=== PATIENT | male | born 1950 | race Caucasian/White ===

== ENCOUNTER 2017-08-27 08:20 | Inpatient (IN) ==
[2017-08-27] MEDS ORDERED: ALBUTEROL 2.5 MG/3 ML NEB RESP TX STA (08:39)
[2017-08-27 09:12] LABS: Basophils # 0.1 10*3/uL (0.0-0.2); Basophils % 0.7 % (0.0-0.8); Eosinophils # 0.2 10*3/uL (0.0-0.87); Eosinophils % 1.9 % (0.00-10.9); Hematocrit 35.9 VOL% (42.0-52.0); Hemoglobin 11.9 GM/DL (14.0-18.0); Immature Granulocytes % 0.9 %; Immature Granulocytes Absolute 0.08 #; Lymphocytes # 1.1 10*3/uL (1.4-4.0); Lymphocytes % 12.1 % (21.2-54.2); Mean Corpuscular HGB Conc 33.1 GM/DL (32-36); Mean Corpuscular Hemoglobin 29 PG (27-34); Mean Corpuscular Volume 88.2 FL (87-102); Mean Platelet Volume 9.8 FL (9.6-12.0); Monocytes # 0.6 10*3/uL (0.11-0.8); Monocytes % 7.1 % (1.7-12.7); Neutrophils # 6.9 10*3/uL (1.4-7.4); Neutrophils % 77.3 % (38.7-73.9); Platelet Count 258 T/CUMM (130-400); Red Blood Count 4.07 MC/CUMM (3.8-5.5); Red Cell Distribution Width 13.3 % (9.3-17.3)
[2017-08-27] MEDS ORDERED: ALBUTEROL 2.5 MG/3 ML NEB RESP TX ONE (09:29)
[2017-08-27 09:54] LABS: Alanine Aminotransferase 15 U/L (16-61); Albumin 3.3 G/DL (3.4-5.0); Alkaline Phosphatase 70 U/L (45-117); Aspartate Amino Transferase 15 U/L (0-37); Bilirubin,Total < 0.39 MG/DL (0.2-1.0); Blood Urea Nitrogen 31 MG/DL (7-18); Calcium 8.7 MG/DL (8.5-10.1); Glucose 203 MG/DL (74-106); Osmolality,Calculated 282.1 MOS/KG (273-304); Potassium 4.9 MMOL/L (3.5-5.1); Sodium 135 MMOL/L (136-145); Total Protein 6.6 G/DL (6.4-8.3); Troponin I Only < 0.015 NG/ML (0.00-0.045)
[2017-08-27] MEDS ORDERED: methylPREDNISolone SOD SUC 125 MG/2 ML VIAL IV STA (10:21)
[2017-08-27] MEDS ORDERED: LEVOFLOXACIN INJ 500 MG in PREMIX 1 EACH IV STA (10:21)
[2017-08-27] MEDS ORDERED: methylPREDNISolone SOD SUC 125 MG/2 ML VIAL ONE (10:28)
[2017-08-27] MEDS ORDERED: LEVOFLOXACIN INJ 100 ML IV ONE (10:28)
[2017-08-27] MEDS ORDERED: GLUCAGON 1 MG VIAL IM PRN (14:00)
[2017-08-27] MEDS ORDERED: DEXTROSE 50% 25 GM/50 ML VIAL IV PRN (14:00)
[2017-08-27] MEDS ORDERED: ACETAMINOPHEN 325 MG TABLET PO PRN (14:00)
[2017-08-27] MEDS: NICOTINE 21 MG/24 HR PATCH TRANSDERM SCH (14:14)
[2017-08-27 14:24] LABS: Risk Ratio 2.64; VLDL CHOLESTEROL 18.2 MG/DL
[2017-08-27] MEDS: LEVOFLOXACIN INJ 500 MG in PREMIX 1 EACH IV SCH (14:37)
[2017-08-27] MEDS: methylPREDNISolone SOD SUC 40 MG/1 ML VIAL IV SCH ×2 (14:55→21:41)
[2017-08-27] MEDS: INSULIN LISPRO 100 UNIT/ML SUBCUT SCH ×3 (14:57→21:40)
[2017-08-27] MEDS: ALBUTEROL/IPRATROPIUM 3 ML NEB RESP TX SCH ×3 (15:00→23:35)
[2017-08-27 16:05] LABS: Apearance,Urine CLEAR (Clear); Bilirubin,Urine Negative (Negative); Blood, Urine Small mg/dL (Negative); Glucose,Urine (UA) >=500 mg/dL (Negative); Ketones,Urine Negative (Negative); Nitrite,Urine Negative (Negative); Protein,Urine Negative; RBC,Urine 2 /HPF (0-4); Squamous Epithelial Cell,Urine Occasional /HPF (0-10); Urine Color Yellow (Yellow); Urine Specific Gravity 1.013 (1.001-1.035); Urine Urobilinogen < 2.0 EU/DL (0.2-1.0); WBC,Urine <1 /HPF (0-6)
[2017-08-27] MEDS: BENZONATATE 100 MG CAPSULE PO SCH (21:38)
[2017-08-27] MEDS: MONTELUKAST 10 MG TABLET PO SCH (21:38)
[2017-08-27] MEDS: CLINDAMYCIN INJ 300 MG in PREMIX 1 EACH IV SCH (21:44)
[2017-08-28] MEDS: ALBUTEROL/IPRATROPIUM 3 ML NEB RESP TX SCH ×5 (03:15→19:58)
[2017-08-28] MEDS: CLINDAMYCIN INJ 300 MG in PREMIX 1 EACH IV SCH ×4 (04:19→22:07)
[2017-08-28 04:58] LABS: Basophils % 0.1 % (0.0-0.8); Hemoglobin 11.3 GM/DL (14.0-18.0); Immature Granulocytes % 1.1 %; Immature Granulocytes Absolute 0.12 #; Lymphocytes # 0.7 10*3/uL (1.4-4.0); Lymphocytes % 6.1 % (21.2-54.2); Mean Corpuscular HGB Conc 33.2 GM/DL (32-36); Mean Corpuscular Hemoglobin 29 PG (27-34); Mean Corpuscular Volume 87.4 FL (87-102); Monocytes # 0.3 10*3/uL (0.11-0.8); Monocytes % 2.8 % (1.7-12.7); Neutrophils # 9.6 10*3/uL (1.4-7.4); Neutrophils % 89.9 % (38.7-73.9); Platelet Count 255 T/CUMM (130-400); Red Blood Count 3.89 MC/CUMM (3.8-5.5); Red Cell Distribution Width 13.1 % (9.3-17.3); White Blood Count 10.7 T/CUMM (4-12)
[2017-08-28 05:29] LABS: Calcium 8.6 MG/DL (8.5-10.1); Magnesium 1.9 MG/DL (1.8-2.4); Osmolality,Calculated 288.2 MOS/KG (273-304); Potassium 4.7 MMOL/L (3.5-5.1)
[2017-08-28] MEDS: methylPREDNISolone SOD SUC 40 MG/1 ML VIAL IV SCH ×3 (06:13→22:06)
[2017-08-28] MEDS: INSULIN LISPRO 100 UNIT/ML SUBCUT SCH ×4 (08:20→22:05)
[2017-08-28] MEDS: NICOTINE 21 MG/24 HR PATCH TRANSDERM SCH (08:20)
[2017-08-28] MEDS: BENZONATATE 100 MG CAPSULE PO SCH ×3 (08:20→22:04)
[2017-08-28] MEDS: MONTELUKAST 10 MG TABLET PO SCH ×2 (08:21→22:05)
[2017-08-28] MEDS: PANTOPRAZOLE 40 MG TABLET PO SCH (08:21)
[2017-08-28] MEDS: FLUCONAZOLE 200 MG TABLET PO SCH (10:34)
[2017-08-28] MEDS: NYSTATIN 500,000 UNIT/5 ML UDCUP SWISH/SWAL SCH ×3 (12:26→22:04)
[2017-08-28] MEDS: BUPRENORPHINE 8 MG SL SCH ×2 (15:10→22:52)
[2017-08-28] MEDS: LEVOFLOXACIN INJ 500 MG in PREMIX 1 EACH IV SCH (15:11)
[2017-08-28] MEDS: cloNIDine 0.1 MG TABLET PO SCH (22:04)
[2017-08-28] MEDS: LIDOCAINE 2% 20 ML VIAL RESP TX SCH (22:40)
[2017-08-29] MEDS: ALBUTEROL/IPRATROPIUM 3 ML NEB RESP TX SCH ×7 (00:04→23:43)
[2017-08-29] MEDS: CLINDAMYCIN INJ 300 MG in PREMIX 1 EACH IV SCH ×4 (04:18→21:07)
[2017-08-29] MEDS: LIDOCAINE 2% 20 ML VIAL RESP TX SCH ×5 (07:29→19:32)
[2017-08-29] MEDS: MONTELUKAST 10 MG TABLET PO SCH ×2 (08:04→21:00)
[2017-08-29] MEDS: BUPRENORPHINE 8 MG SL SCH ×3 (08:04→20:58)
[2017-08-29] MEDS: PANTOPRAZOLE 40 MG TABLET PO SCH (08:04)
[2017-08-29] MEDS: cloNIDine 0.1 MG TABLET PO SCH ×2 (08:04→20:59)
[2017-08-29] MEDS: FUROSEMIDE 40 MG TABLET PO SCH ×2 (08:04→16:18)
[2017-08-29] MEDS: NICOTINE 21 MG/24 HR PATCH TRANSDERM SCH (08:04)
[2017-08-29] MEDS: methylPREDNISolone SOD SUC 40 MG/1 ML VIAL IV SCH ×3 (08:04→23:00)
[2017-08-29] MEDS: FLUCONAZOLE 200 MG TABLET PO SCH (08:05)
[2017-08-29] MEDS: METOPROLOL SUCCINATE XL 50 MG TABLET PO SCH (08:05)
[2017-08-29] MEDS: BENZONATATE 100 MG CAPSULE PO SCH ×3 (08:05→21:01)
[2017-08-29] MEDS: NYSTATIN 500,000 UNIT/5 ML UDCUP SWISH/SWAL SCH ×4 (08:05→21:01)
[2017-08-29] MEDS: INSULIN LISPRO 100 UNIT/ML SUBCUT SCH ×4 (08:05→21:05)
[2017-08-29] MEDS: ASPIRIN EC 325 MG TABLET PO SCH (08:05)
[2017-08-29] MEDS: LEVOFLOXACIN INJ 500 MG in PREMIX 1 EACH IV SCH (14:34)
[2017-08-29] MEDS: MELATONIN 3 MG TABLET PO PRN (20:59)
[2017-08-30] MEDS: ALBUTEROL/IPRATROPIUM 3 ML NEB RESP TX SCH ×5 (03:08→18:52)
[2017-08-30] MEDS: CLINDAMYCIN INJ 300 MG in PREMIX 1 EACH IV SCH ×4 (04:37→22:43)
[2017-08-30] MEDS: BUPRENORPHINE 8 MG SL SCH ×3 (08:03→20:38)
[2017-08-30] MEDS: FUROSEMIDE 40 MG TABLET PO SCH ×2 (08:03→16:31)
[2017-08-30] MEDS: METOPROLOL SUCCINATE XL 50 MG TABLET PO SCH (08:03)
[2017-08-30] MEDS: cloNIDine 0.1 MG TABLET PO SCH ×2 (08:03→20:33)
[2017-08-30] MEDS: PANTOPRAZOLE 40 MG TABLET PO SCH (08:03)
[2017-08-30] MEDS: NYSTATIN 500,000 UNIT/5 ML UDCUP SWISH/SWAL SCH ×4 (08:03→20:32)
[2017-08-30] MEDS: BENZONATATE 100 MG CAPSULE PO SCH ×3 (08:03→20:32)
[2017-08-30] MEDS: ASPIRIN EC 325 MG TABLET PO SCH (08:03)
[2017-08-30] MEDS: MONTELUKAST 10 MG TABLET PO SCH ×2 (08:03→20:33)
[2017-08-30] MEDS: FLUCONAZOLE 200 MG TABLET PO SCH (08:03)
[2017-08-30] MEDS: NICOTINE 21 MG/24 HR PATCH TRANSDERM SCH (08:03)
[2017-08-30] MEDS: INSULIN LISPRO 100 UNIT/ML SUBCUT SCH ×4 (08:04→20:36)
[2017-08-30] MEDS: methylPREDNISolone SOD SUC 40 MG/1 ML VIAL IV SCH ×2 (10:34→22:41)
[2017-08-30] MEDS: LEVOFLOXACIN INJ 500 MG in PREMIX 1 EACH IV SCH (14:20)
[2017-08-30] MEDS: MELATONIN 3 MG TABLET PO PRN (20:33)
[2017-08-31] MEDS: ALBUTEROL/IPRATROPIUM 3 ML NEB RESP TX SCH ×4 (00:15→11:09)
[2017-08-31] MEDS: CLINDAMYCIN INJ 300 MG in PREMIX 1 EACH IV SCH ×2 (04:07→10:21)
[2017-08-31] MEDS: cloNIDine 0.1 MG TABLET PO SCH (08:39)
[2017-08-31] MEDS: NYSTATIN 500,000 UNIT/5 ML UDCUP SWISH/SWAL SCH ×2 (08:39→11:59)
[2017-08-31] MEDS: FUROSEMIDE 40 MG TABLET PO SCH (08:39)
[2017-08-31] MEDS: BENZONATATE 100 MG CAPSULE PO SCH (08:39)
[2017-08-31] MEDS: METOPROLOL SUCCINATE XL 50 MG TABLET PO SCH (08:39)
[2017-08-31] MEDS: MONTELUKAST 10 MG TABLET PO SCH (08:39)
[2017-08-31] MEDS: ASPIRIN EC 325 MG TABLET PO SCH (08:39)
[2017-08-31] MEDS: FLUCONAZOLE 200 MG TABLET PO SCH (08:39)
[2017-08-31] MEDS: PANTOPRAZOLE 40 MG TABLET PO SCH (08:39)
[2017-08-31] MEDS: INSULIN LISPRO 100 UNIT/ML SUBCUT SCH ×2 (08:40→12:00)
[2017-08-31] MEDS: NICOTINE 21 MG/24 HR PATCH TRANSDERM SCH (08:40)
[2017-08-31] MEDS: BUPRENORPHINE 8 MG SL SCH (08:47)
[2017-08-31] MEDS: methylPREDNISolone SOD SUC 40 MG/1 ML VIAL IV SCH (10:19)
[2017-08-31 12:07] VITALS: BP 157/69
== END 2017-08-31 12:45 | disposition home or self-care (01) | DRG 192 ==
LOC: N.ED 08:20 → SUATTDRO 10:28 → N.EDINP 10:28 → N.4E 13:55
PROVIDERS: ADMIT Internal Medicine; ATTEND Internal Medicine

== ENCOUNTER 2018-12-15 12:47 | Observation (INO) ==
[2018-12-15] MEDS ORDERED: SODIUM CHLORIDE 0.9% 500 ML IV STA (13:23)
[2018-12-15] MEDS ORDERED: ALBUTEROL/IPRATROPIUM 3 ML NEB RESP TX STA (13:23)
[2018-12-15 13:59] LABS: Basophils # 0.1 10*3/uL (0.0-0.2); Basophils % 1.3 % (0.0-0.8); Eosinophils # 0.2 10*3/uL (0.0-0.87); Eosinophils % 3.5 % (0.00-10.9); Hematocrit 23.8 VOL% (42.0-52.0); Hemoglobin 7.7 GM/DL (14.0-18.0); Immature Granulocytes % 7.3 %; Immature Granulocytes Absolute 0.39 #; Lymphocytes # 0.4 10*3/uL (1.4-4.0); Mean Corpuscular HGB Conc 32.4 GM/DL (32-36); Mean Corpuscular Hemoglobin 31 PG (27-34); Mean Corpuscular Volume 95.2 FL (87-102); Mean Platelet Volume 10.1 FL (9.6-12.0); Monocytes % 17.7 % (1.7-12.7); Neutrophils # 3.3 10*3/uL (1.4-7.4); Neutrophils % 62.2 % (38.7-73.9); Platelet Count 121 T/CUMM (130-400); Red Cell Distribution Width 18.6 % (9.3-17.3); White Blood Count 5.4 T/CUMM (4-12)
[2018-12-15] MEDS ORDERED: SODIUM CHLORIDE 0.9% 1,000 ML IV PRN ×2 (14:05→15:50)
[2018-12-15 14:26] LABS: Alanine Aminotransferase 16 U/L (16-61); Albumin 3.5 G/DL (3.4-5.0); Alkaline Phosphatase 97 U/L (45-117); Aspartate Amino Transferase 15 U/L (0-37); Bilirubin,Total < 0.39 MG/DL (0.2-1.0); Blood Urea Nitrogen 26 MG/DL (7-18); Calcium 8.5 MG/DL (8.5-10.1); Glucose 138 MG/DL (74-106); Osmolality,Calculated 285.4 MOS/KG (273-304); Potassium 3.9 MMOL/L (3.5-5.1); Sodium 140 MMOL/L (136-145); Total Protein 6.9 G/DL (6.4-8.3)
[2018-12-15 14:46] LABS: Band Neutrophils 5 % (0-10); Eosinophils 1 % (0-10); Lymphocytes 11 % (20-55); Metamyelocytes 1 %; Myelocytes 1 %; Platelet Estimate Adequate; Segmented Neutrophils 61 % (50-85); Total Cells Counted 100
[2018-12-15 14:47] LABS: Hypochromasia Slight; Macrocytosis Slight; Ovalocytes Few
[2018-12-15] MEDS ORDERED: GLUCAGON 1 MG VIAL IM PRN (15:21)
[2018-12-15] MEDS ORDERED: ONDANSETRON 4 MG/2 ML VIAL IV PRN (15:21)
[2018-12-15] MEDS ORDERED: DEXTROSE 50% 25 GM/50 ML SYRINGE IV PRN (15:21)
[2018-12-15] MEDS ORDERED: ACETAMINOPHEN 325 MG TABLET PO PRN (15:21)
[2018-12-15] MEDS ORDERED: HYDROmorphone 2 MG/1 ML VIAL IV STA (15:49)
[2018-12-15] MEDS ORDERED: MAGNESIUM SULF RIDER 2 GM in PREMIX 1 EACH IV ONE (17:07)
[2018-12-15] MEDS: FUROSEMIDE 40 MG TABLET PO SCH (17:27)
[2018-12-15] MEDS: HYDROmorphone 2 MG/1 ML VIAL IV PRN ×2 (17:28→21:40)
[2018-12-15] MEDS: INSULIN REGULAR 100 UNIT/ML SUBCUT SCH ×2 (17:56→21:30)
[2018-12-15] MEDS: NYSTATIN 500,000 UNIT/5 ML UDCUP SWISH/SWAL SCH ×2 (18:34→21:33)
[2018-12-15] MEDS ORDERED: NICOTINE 21 MG/24 HR PATCH TRANSDERM SCH (18:36)
[2018-12-15] MEDS: ALBUTEROL/IPRATROPIUM 3 ML NEB RESP TX SCH (19:30)
[2018-12-15] MEDS ORDERED: SIMVASTATIN 40 MG TABLET PO SCH (21:00)
[2018-12-15] MEDS: BUPRENORPHINE SL TAB 2 MG TABLET SL SCH (21:29)
[2018-12-15] MEDS: POTASSIUM CHLORIDE 20 MEQ TABLET PO SCH (21:29)
[2018-12-15] MEDS: PANTOPRAZOLE 40 MG TABLET PO SCH (21:30)
[2018-12-15] MEDS: BUDESONIDE/FORMOTEROL 160-4.5 INHALER 6 GM INH SCH (21:41)
[2018-12-16] MEDS: ALBUTEROL/IPRATROPIUM 3 ML NEB RESP TX SCH ×2 (00:30→07:06)
[2018-12-16] MEDS: HYDROmorphone 2 MG/1 ML VIAL IV PRN ×2 (03:03→08:36)
[2018-12-16 07:03] LABS: Basophils % 0.4 % (0.0-0.8); Eosinophils # 0.2 10*3/uL (0.0-0.87); Eosinophils % 2.3 % (0.00-10.9); Hematocrit 31.1 VOL% (42.0-52.0); Hemoglobin 10.3 GM/DL (14.0-18.0); Immature Granulocytes % 10.6 %; Immature Granulocytes Absolute 1.02 #; Lymphocytes # 0.5 10*3/uL (1.4-4.0); Lymphocytes % 5.1 % (21.2-54.2); Mean Corpuscular HGB Conc 33.1 GM/DL (32-36); Mean Corpuscular Hemoglobin 31 PG (27-34); Mean Corpuscular Volume 93.1 FL (87-102); Mean Platelet Volume 10.6 FL (9.6-12.0); Monocytes # 1.6 10*3/uL (0.11-0.8); Monocytes % 16.6 % (1.7-12.7); NRBC # 0.03 10*3/uL; Neutrophils # 6.2 10*3/uL (1.4-7.4); Platelet Count 106 T/CUMM (130-400); Red Blood Count 3.34 MC/CUMM (3.8-5.5); Red Cell Distribution Width 17.2 % (9.3-17.3); White Blood Count 9.6 T/CUMM (4-12)
[2018-12-16 07:26] LABS: Albumin 3.4 G/DL (3.4-5.0); Band Neutrophils 6 % (0-10); Bilirubin,Total 1.5 MG/DL (0.2-1.0); Calcium 8.8 MG/DL (8.5-10.1); Eosinophils 2 % (0-10); Hypochromasia 1+; Lymphocytes 5 % (20-55); Nucleated Red Blood Cells 1 (0-5); Osmolality,Calculated 281.5 MOS/KG (273-304); Ovalocytes Slight; Potassium 3.8 MMOL/L (3.5-5.1); Segmented Neutrophils 71 % (50-85); Total Cells Counted 100; Total Protein 7.3 G/DL (6.4-8.3)
[2018-12-16 07:27] LABS: Anisocytosis 1+; Microcytosis 1+
[2018-12-16] MEDS: POTASSIUM CHLORIDE 20 MEQ TABLET PO SCH (08:30)
[2018-12-16] MEDS: FUROSEMIDE 40 MG TABLET PO SCH (08:30)
[2018-12-16] MEDS: BUPRENORPHINE SL TAB 2 MG TABLET SL SCH (08:31)
[2018-12-16] MEDS: BUDESONIDE/FORMOTEROL 160-4.5 INHALER 6 GM INH SCH (08:40)
[2018-12-16] MEDS ORDERED: cloNIDine 0.1 MG TABLET PO SCH (09:00)
[2018-12-16] MEDS ORDERED: NICOTINE 21 MG/24 HR PATCH TRANSDERM SCH (09:00)
[2018-12-16] MEDS ORDERED: PANTOPRAZOLE 40 MG TABLET PO SCH (09:00)
[2018-12-16] MEDS ORDERED: ASPIRIN EC 325 MG TABLET PO SCH (09:00)
[2018-12-16] MEDS: INSULIN REGULAR 100 UNIT/ML SUBCUT SCH ×2 (09:28→13:26)
[2018-12-16] MEDS: NYSTATIN 500,000 UNIT/5 ML UDCUP SWISH/SWAL SCH ×2 (10:50→13:26)
[2018-12-16] MEDS: PANTOPRAZOLE 40 MG TABLET PO SCH (10:50)
[2018-12-16 13:07] VITALS: BP 144/76
== END 2018-12-16 13:21 | disposition home or self-care (01) ==
LOC: N.EDINP 12:47 → N.ED 12:47 → N.4E 16:57
PROVIDERS: ADMIT Hospitalist; ATTEND Hospitalist

== ENCOUNTER 2019-01-10 15:11 | Inpatient (IN) ==
[2019-01-10] MEDS ORDERED: ALBUTEROL/IPRATROPIUM 3 ML NEB RESP TX STA (17:23)
[2019-01-10] MEDS ORDERED: FUROSEMIDE 40 MG/4 ML VIAL IV STA (17:23)
[2019-01-10] MEDS ORDERED: CEFTAROLINE 600 MG in SODIUM CHLORIDE 0.9% 100 ML IV STA (17:23)
[2019-01-10 17:25] LABS: Basophils % 0.4 % (0.0-0.8); Eosinophils # 0.1 10*3/uL (0.0-0.87); Eosinophils % 1.3 % (0.00-10.9); Hematocrit 25.2 VOL% (42.0-52.0); Hemoglobin 8.2 GM/DL (14.0-18.0); Immature Granulocytes % 4.9 %; Immature Granulocytes Absolute 0.37 #; Lymphocytes # 0.5 10*3/uL (1.4-4.0); Lymphocytes % 6.8 % (21.2-54.2); Mean Corpuscular HGB Conc 32.5 GM/DL (32-36); Mean Corpuscular Hemoglobin 33 PG (27-34); Mean Corpuscular Volume 100.4 FL (87-102); Mean Platelet Volume 10.6 FL (9.6-12.0); Monocytes # 0.7 10*3/uL (0.11-0.8); Monocytes % 9.6 % (1.7-12.7); Neutrophils # 5.8 10*3/uL (1.4-7.4); Platelet Count 80 T/CUMM (130-400); Red Blood Count 2.51 MC/CUMM (3.8-5.5); White Blood Count 7.5 T/CUMM (4-12)
[2019-01-10 17:53] LABS: Alanine Aminotransferase 20 U/L (16-61); Albumin 3.5 G/DL (3.4-5.0); Alkaline Phosphatase 95 U/L (45-117); Aspartate Amino Transferase 17 U/L (0-37); Bilirubin,Total < 0.39 MG/DL (0.2-1.0); Blood Urea Nitrogen 25 MG/DL (7-18); Calcium 7.7 MG/DL (8.5-10.1); Glucose 114 MG/DL (74-106); Osmolality,Calculated 279.7 MOS/KG (273-304); Potassium 4.1 MMOL/L (3.5-5.1); Sodium 138 MMOL/L (136-145); Total Protein 6.9 G/DL (6.4-8.3)
[2019-01-10 17:56] LABS: Troponin I < 0.015 NG/ML (0.00-0.045)
[2019-01-10] MEDS ORDERED: MAGNESIUM SULF RIDER 2 GM in PREMIX 1 EACH IV STA (18:22)
[2019-01-10 18:26] LABS: Anisocytosis Slight
[2019-01-10 18:27] LABS: Hypochromasia Slight; Microcytosis 1+; Ovalocytes Slight; Platelet Estimate Decreased
[2019-01-10 18:30] LABS: Band Neutrophils 1 % (0-10); Lymphocytes 10 % (20-55); Segmented Neutrophils 80 % (50-85); Total Cells Counted 100
[2019-01-10] MEDS ORDERED: MORPHINE 4 MG/1 ML VIAL IV STA (18:44)
[2019-01-10] MEDS ORDERED: ONDANSETRON 4 MG/2 ML VIAL IV STA (18:44)
[2019-01-10] MEDS ORDERED: guaiFENesin/DM ER 600-30 MG TABLET PO PRN (19:31)
[2019-01-10] MEDS ORDERED: ACETAMINOPHEN 325 MG TABLET PO PRN (19:31)
[2019-01-10] MEDS ORDERED: DOCUSATE SODIUM 100 MG CAPSULE PO PRN (19:31)
[2019-01-10] MEDS ORDERED: ONDANSETRON 4 MG/2 ML VIAL IV PRN (19:31)
[2019-01-10] MEDS ORDERED: ALBUTEROL/IPRATROPIUM 3 ML NEB RESP TX PRN (20:06)
[2019-01-10] MEDS ORDERED: NITROGLYCERIN SL 0.4 MG TABLET SL PRN (20:16)
[2019-01-10] MEDS ORDERED: GLUCAGON 1 MG VIAL IM PRN (20:17)
[2019-01-10] MEDS ORDERED: DEXTROSE 50% 25 GM/50 ML VIAL IV PRN (20:17)
[2019-01-10] MEDS: BUDESONIDE/FORMOTEROL 160-4.5 INHALER 6 GM INH SCH (21:51)
[2019-01-10] MEDS: POTASSIUM CHLORIDE 20 MEQ TABLET PO SCH (21:52)
[2019-01-10] MEDS: cloNIDine 0.1 MG TABLET PO SCH (21:52)
[2019-01-10] MEDS: BUPRENORPHINE SL TAB 2 MG TABLET SL SCH (21:52)
[2019-01-10] MEDS: APIXABAN 2.5 MG TABLET PO SCH (21:52)
[2019-01-10] MEDS: INSULIN LISPRO 100 UNIT/ML SUBCUT SCH (21:55)
[2019-01-11 04:43] LABS: Basophils % 0.4 % (0.0-0.8); Eosinophils # 0.1 10*3/uL (0.0-0.87); Eosinophils % 1.3 % (0.00-10.9); Hematocrit 22.5 VOL% (42.0-52.0); Hemoglobin 7.2 GM/DL (14.0-18.0); Immature Granulocytes Absolute 0.32 #; Lymphocytes # 0.4 10*3/uL (1.4-4.0); Lymphocytes % 8.3 % (21.2-54.2); Mean Corpuscular Hemoglobin 32 PG (27-34); Mean Corpuscular Volume 99.6 FL (87-102); Mean Platelet Volume 10.6 FL (9.6-12.0); Monocytes # 0.7 10*3/uL (0.11-0.8); Monocytes % 12.8 % (1.7-12.7); Neutrophils # 3.8 10*3/uL (1.4-7.4); Neutrophils % 71.2 % (38.7-73.9); Platelet Count 68 T/CUMM (130-400); Red Blood Count 2.26 MC/CUMM (3.8-5.5); White Blood Count 5.3 T/CUMM (4-12)
[2019-01-11 05:14] LABS: Calcium 7.9 MG/DL (8.5-10.1); Osmolality,Calculated 289.4 MOS/KG (273-304); Potassium 4.4 MMOL/L (3.5-5.1)
[2019-01-11 05:19] LABS: Eosinophils 2 % (0-10); Hypochromasia 1+; Lymphocytes 11 % (20-55); Microcytosis 1+; Nucleated Red Blood Cells 3 (0-5); Platelet Estimate Decreased; Segmented Neutrophils 85 % (50-85); Total Cells Counted 100
[2019-01-11] MEDS ORDERED: SODIUM CHLORIDE 0.9% 1,000 ML IV PRN (08:49)
[2019-01-11] MEDS: NICOTINE 21 MG/24 HR PATCH TRANSDERM SCH (09:42)
[2019-01-11] MEDS: FUROSEMIDE 40 MG/4 ML VIAL IV SCH ×2 (09:42→16:04)
[2019-01-11] MEDS: POTASSIUM CHLORIDE 20 MEQ TABLET PO SCH ×2 (09:43→21:06)
[2019-01-11] MEDS: BUDESONIDE/FORMOTEROL 160-4.5 INHALER 6 GM INH SCH ×2 (09:43→21:06)
[2019-01-11] MEDS: cloNIDine 0.1 MG TABLET PO SCH ×2 (09:43→21:06)
[2019-01-11] MEDS: APIXABAN 2.5 MG TABLET PO SCH ×2 (09:43→21:06)
[2019-01-11] MEDS: BUPRENORPHINE SL TAB 2 MG TABLET SL SCH ×2 (09:43→21:06)
[2019-01-11] MEDS: ASPIRIN EC 325 MG TABLET PO SCH (09:43)
[2019-01-11] MEDS: PANTOPRAZOLE 40 MG TABLET PO SCH (09:43)
[2019-01-11] MEDS: INSULIN LISPRO 100 UNIT/ML SUBCUT SCH ×5 (09:43→20:16)
[2019-01-11] MEDS: METOPROLOL SUCCINATE XL 50 MG TABLET PO SCH (09:43)
[2019-01-11] MEDS ORDERED: MAGNESIUM OXIDE 400 MG TABLET PO ONE (10:42)
[2019-01-11] MEDS ORDERED: IRON SUCROSE 200 MG in SODIUM CHLORIDE 0.9% 100 ML IV SCH (11:00)
[2019-01-11 11:39] LABS: % Iron Saturation 21.9 % (18-50)
[2019-01-11] MEDS: ASCORBIC ACID 500 MG TABLET PO SCH (11:53)
[2019-01-11] MEDS: FOLIC ACID 1 MG TABLET PO SCH (11:53)
[2019-01-11] MEDS: MORPHINE 4 MG/1 ML VIAL IV PRN ×3 (12:02→23:08)
[2019-01-11 23:12] LABS: Hematocrit 27.9 VOL% (42.0-52.0)
[2019-01-11 23:16] LABS: Hemoglobin 8.9 GM/DL (14.0-18.0)
[2019-01-12] MEDS: MORPHINE 4 MG/1 ML VIAL IV PRN ×2 (04:25→09:29)
[2019-01-12 05:11] LABS: Basophils # 0.1 10*3/uL (0.0-0.2); Basophils % 1.2 % (0.0-0.8); Eosinophils # 0.1 10*3/uL (0.0-0.87); Eosinophils % 1.5 % (0.00-10.9); Hematocrit 30.5 VOL% (42.0-52.0); Hemoglobin 9.8 GM/DL (14.0-18.0); Immature Granulocytes % 5.2 %; Immature Granulocytes Absolute 0.35 #; Lymphocytes # 0.5 10*3/uL (1.4-4.0); Lymphocytes % 7.6 % (21.2-54.2); Mean Corpuscular HGB Conc 32.1 GM/DL (32-36); Mean Corpuscular Hemoglobin 31 PG (27-34); Mean Corpuscular Volume 96.8 FL (87-102); Mean Platelet Volume 10.2 FL (9.6-12.0); Monocytes # 0.8 10*3/uL (0.11-0.8); Monocytes % 11.8 % (1.7-12.7); Neutrophils # 4.9 10*3/uL (1.4-7.4); Neutrophils % 72.7 % (38.7-73.9); Red Cell Distribution Width 18.5 % (9.3-17.3); White Blood Count 6.7 T/CUMM (4-12)
[2019-01-12 05:13] LABS: Platelet Count 82 T/CUMM (130-400); Red Blood Count 3.15 MC/CUMM (3.8-5.5)
[2019-01-12 05:38] LABS: Anisocytosis Slight; Band Neutrophils 5 % (0-10); Eosinophils 2 % (0-10); Lymphocytes 8 % (20-55); Macrocytosis Slight; Ovalocytes 1+; Platelet Estimate Decreased; Segmented Neutrophils 72 % (50-85); Total Cells Counted 100
[2019-01-12] MEDS: INSULIN LISPRO 100 UNIT/ML SUBCUT SCH ×2 (07:48→12:05)
[2019-01-12] MEDS: ASCORBIC ACID 500 MG TABLET PO SCH (09:07)
[2019-01-12] MEDS: POTASSIUM CHLORIDE 20 MEQ TABLET PO SCH (09:07)
[2019-01-12] MEDS: ASPIRIN EC 325 MG TABLET PO SCH (09:07)
[2019-01-12] MEDS: NICOTINE 21 MG/24 HR PATCH TRANSDERM SCH (09:07)
[2019-01-12] MEDS: cloNIDine 0.1 MG TABLET PO SCH (09:08)
[2019-01-12] MEDS: FOLIC ACID 1 MG TABLET PO SCH (09:08)
[2019-01-12] MEDS: BUPRENORPHINE SL TAB 2 MG TABLET SL SCH (09:08)
[2019-01-12] MEDS: METOPROLOL SUCCINATE XL 50 MG TABLET PO SCH (09:08)
[2019-01-12] MEDS: BUDESONIDE/FORMOTEROL 160-4.5 INHALER 6 GM INH SCH (09:08)
[2019-01-12] MEDS: FUROSEMIDE 40 MG/4 ML VIAL IV SCH (09:08)
[2019-01-12] MEDS: PANTOPRAZOLE 40 MG TABLET PO SCH (09:08)
[2019-01-12] MEDS: APIXABAN 2.5 MG TABLET PO SCH (09:08)
[2019-01-12 11:39] VITALS: BP 104/67
== END 2019-01-12 12:15 | disposition home health service (06) | DRG 300 ==
LOC: N.ED 15:11 → SUATTDRO 19:31 → N.EDINP 19:31 → N.4E 21:00
PROVIDERS: ADMIT Internal Medicine; ATTEND Internal Medicine

== ENCOUNTER 2019-04-29 13:49 | Inpatient (IN) ==
[2019-04-29] MEDS ORDERED: methylPREDNISolone SOD SUC 125 MG/2 ML VIAL IV STA (15:12)
[2019-04-29] MEDS ORDERED: MEROPENEM 1,000 MG in SODIUM CHLORIDE 0.9% 100 ML IV STA (15:12)
[2019-04-29] MEDS ORDERED: ONDANSETRON 4 MG/2 ML VIAL IV STA (15:12)
[2019-04-29] MEDS ORDERED: FUROSEMIDE 40 MG/4 ML VIAL IV STA (15:20)
[2019-04-29] MEDS ORDERED: ALBUTEROL 2.5 MG/3 ML NEB RESP TX SCH (15:30)
[2019-04-29 15:52] LABS: Basophils % 0.5 % (0.0-0.8); Eosinophils # 0.1 10*3/uL (0.0-0.87); Hematocrit 27.5 VOL% (42.0-52.0); Hemoglobin 8.7 GM/DL (14.0-18.0); Immature Granulocytes % 0.9 %; Immature Granulocytes Absolute 0.07 #; Lymphocytes # 0.5 10*3/uL (1.4-4.0); Lymphocytes % 6.1 % (21.2-54.2); Mean Corpuscular HGB Conc 31.6 GM/DL (32-36); Mean Platelet Volume 8.9 FL (9.6-12.0); Monocytes % 7.4 % (1.7-12.7); Neutrophils % 84.1 % (38.7-73.9); Platelet Count 187 T/CUMM (130-400); Red Blood Count 2.67 MC/CUMM (3.8-5.5); Red Cell Distribution Width 13.8 % (9.3-17.3); White Blood Count 8.1 T/CUMM (4-12)
[2019-04-29 15:57] LABS: Apearance,Urine CLEAR (Clear); Bacteria,Urine Occasional /HPF (Few); Bilirubin,Urine Negative (Negative); Blood, Urine Small mg/dL (Negative); Glucose,Urine (UA) Negative (Negative); Hyaline Casts,Urine 1 /LPF (0-3); Ketones,Urine Negative (Negative); Mucus,Urine Occasional /LPF (Occasional); Nitrite,Urine Negative (Negative); Protein,Urine Negative; RBC,Urine 1 /HPF (0-4); Squamous Epithelial Cell,Urine Occasional /HPF (0-10); Urine Color Yellow (Yellow); Urine Specific Gravity 1.009 (1.001-1.035); Urine Urobilinogen < 2.0 EU/DL (0.2-1.0); WBC,Urine <1 /HPF (0-6)
[2019-04-29 16:03] LABS: INR 1.1; PT Patient Result 11.4 SECS; Partial Thromboplastin Time 30.3 SECS (0-40)
[2019-04-29 16:09] LABS: Bilirubin,Total 0.4 MG/DL (0.2-1.0); Calcium 8.6 MG/DL (8.5-10.1); Osmolality,Calculated 281.5 MOS/KG (273-304); Total Protein 6.6 G/DL (6.4-8.3)
[2019-04-29 16:12] LABS: Troponin I 0.087 NG/ML (0.00-0.045)
[2019-04-29] MEDS ORDERED: DEXTROSE 50% 25 GM/50 ML SYRINGE IV ONE (16:12)
[2019-04-29] MEDS ORDERED: fentaNYL 100 MCG/2 ML VIAL IV STA (16:17)
[2019-04-29] MEDS ORDERED: DEXTROSE 50% 25 GM/50 ML VIAL IV STA (16:17)
[2019-04-29] MEDS ORDERED: GLUCAGON 1 MG VIAL IM PRN (19:17)
[2019-04-29] MEDS ORDERED: DEXTROSE 50% 25 GM/50 ML VIAL IV PRN (19:17)
[2019-04-29] MEDS ORDERED: traZODone 50 MG TABLET PO PRN (19:17)
[2019-04-29] MEDS ORDERED: ALBUTEROL 2.5 MG/3 ML NEB RESP TX PRN (19:17)
[2019-04-29] MEDS ORDERED: ALBUTEROL/IPRATROPIUM 3 ML NEB RESP TX PRN (19:17)
[2019-04-29] MEDS ORDERED: DOCUSATE SODIUM 100 MG CAPSULE PO PRN (19:17)
[2019-04-29] MEDS ORDERED: ONDANSETRON 4 MG/2 ML VIAL IV PRN (19:17)
[2019-04-29 19:58] LABS: Folate 8.3 NG/ML (5.4-24.0); Vitamin B12 > 2000 PG/ML (211-911)
[2019-04-29 20:59] LABS: % Iron Saturation 9.7 % (18-50); Ferritin 247.6 ng/ml (26-388); Iron 22 UG/DL (65-175); Iron Binding Capacity 227 UG/DL (250-450)
[2019-04-29 21:00] LABS: Troponin I 0.059 NG/ML (0.00-0.045)
[2019-04-29] MEDS ORDERED: BUPRENORPHINE NALOXONE SL SCH (21:00)
[2019-04-29] MEDS: BUDESONIDE/FORMOTEROL 160-4.5 INHALER 6 GM INH SCH (21:04)
[2019-04-29] MEDS: oxyCODONE ER 20 MG TABLET PO SCH (21:05)
[2019-04-29] MEDS: APIXABAN 5 MG TABLET PO SCH (21:06)
[2019-04-29] MEDS: methylPREDNISolone SOD SUC 40 MG/1 ML VIAL IV SCH (21:06)
[2019-04-29] MEDS: POTASSIUM CHLORIDE 10 MEQ TABLET PO SCH (21:06)
[2019-04-29] MEDS: LEVOFLOXACIN INJ 500 MG in PREMIX 1 EACH IV SCH (21:07)
[2019-04-29] MEDS: FUROSEMIDE 40 MG/4 ML VIAL IV SCH (21:07)
[2019-04-29] MEDS: INSULIN REGULAR 100 UNIT/ML SUBCUT SCH (21:08)
[2019-04-29] MEDS: NICOTINE 21 MG/24 HR PATCH TRANSDERM PRN (22:39)
[2019-04-30] MEDS: methylPREDNISolone SOD SUC 40 MG/1 ML VIAL IV SCH ×4 (03:43→21:15)
[2019-04-30] MEDS: MORPHINE 4 MG/1 ML VIAL IV PRN ×3 (03:53→19:11)
[2019-04-30 04:38] LABS: Basophils % 0.2 % (0.0-0.8); Hematocrit 27.1 VOL% (42.0-52.0); Hemoglobin 8.5 GM/DL (14.0-18.0); Immature Granulocytes % 2.3 %; Lymphocytes # 0.1 10*3/uL (1.4-4.0); Lymphocytes % 2.6 % (21.2-54.2); Mean Corpuscular HGB Conc 31.4 GM/DL (32-36); Mean Corpuscular Volume 103.4 FL (87-102); Mean Platelet Volume 9.1 FL (9.6-12.0); Monocytes % 0.9 % (1.7-12.7); Platelet Count 152 T/CUMM (130-400); Red Blood Count 2.62 MC/CUMM (3.8-5.5); Red Cell Distribution Width 13.8 % (9.3-17.3); White Blood Count 4.3 T/CUMM (4-12)
[2019-04-30 05:08] LABS: Alanine Aminotransferase 17 U/L (16-61); Albumin 2.6 G/DL (3.4-5.0); Alkaline Phosphatase 61 U/L (45-117); Aspartate Amino Transferase 17 U/L (0-37); Blood Urea Nitrogen 36 MG/DL (7-18); Calcium 8.5 MG/DL (8.5-10.1); Glucose 327 MG/DL (74-106); HDL Cholesterol 40 MG/DL (40-60); Osmolality,Calculated 295.7 MOS/KG (273-304); Risk Ratio 3.83; Total Protein 6.5 G/DL (6.4-8.3); Triglycerides 77 MG/DL (2-150); Troponin I 0.036 NG/ML (0.00-0.045); VLDL CHOLESTEROL 15.4 MG/DL
[2019-04-30 05:09] LABS: Hypochromasia Slight; Lymphocytes 4 % (20-55); Metamyelocytes 1 %; Platelet Estimate Adequate; Segmented Neutrophils 94 % (50-85); Total Cells Counted 100
[2019-04-30] MEDS: INSULIN REGULAR 100 UNIT/ML SUBCUT SCH ×4 (08:50→21:15)
[2019-04-30] MEDS: METOPROLOL SUCCINATE XL 50 MG TABLET PO SCH (08:50)
[2019-04-30] MEDS: POTASSIUM CHLORIDE 10 MEQ TABLET PO SCH ×2 (08:50→21:16)
[2019-04-30] MEDS: PANTOPRAZOLE 40 MG TABLET PO SCH (08:51)
[2019-04-30] MEDS: APIXABAN 5 MG TABLET PO SCH ×2 (08:51→21:16)
[2019-04-30] MEDS: oxyCODONE ER 20 MG TABLET PO SCH ×2 (08:51→21:16)
[2019-04-30] MEDS: FUROSEMIDE 40 MG/4 ML VIAL IV SCH ×2 (08:52→15:41)
[2019-04-30] MEDS ORDERED: oxyCODONE/ACETAMINOPHEN 5-325 MG TABLET PO ONE (09:06)
[2019-04-30] MEDS ORDERED: GLUCAGON 1 MG VIAL IM PRN (09:10)
[2019-04-30] MEDS ORDERED: DEXTROSE 50% 25 GM/50 ML VIAL IV PRN (09:10)
[2019-04-30] MEDS: ACETAMINOPHEN 325 MG TABLET PO PRN (09:31)
[2019-04-30] MEDS: BUDESONIDE/FORMOTEROL 160-4.5 INHALER 6 GM INH SCH ×2 (11:19→21:23)
[2019-04-30] MEDS: DORNASE ALFA 2.5 MG/2.5 ML VIAL RESP TX SCH ×2 (11:22→18:50)
[2019-04-30] MEDS: NICOTINE 21 MG/24 HR PATCH TRANSDERM PRN (13:31)
[2019-04-30] MEDS: LEVOFLOXACIN INJ 500 MG in PREMIX 1 EACH IV SCH (21:15)
[2019-05-01] MEDS: methylPREDNISolone SOD SUC 40 MG/1 ML VIAL IV SCH ×3 (04:55→20:22)
[2019-05-01] MEDS: DORNASE ALFA 2.5 MG/2.5 ML VIAL RESP TX SCH ×2 (07:11→20:05)
[2019-05-01 07:49] LABS: Basophils % 0.1 % (0.0-0.8); Hematocrit 27.6 VOL% (42.0-52.0); Hemoglobin 8.6 GM/DL (14.0-18.0); Immature Granulocytes % 1.5 %; Immature Granulocytes Absolute 0.19 #; Lymphocytes # 0.2 10*3/uL (1.4-4.0); Lymphocytes % 1.4 % (21.2-54.2); Mean Corpuscular HGB Conc 31.2 GM/DL (32-36); Mean Corpuscular Volume 104.5 FL (87-102); Mean Platelet Volume 9.1 FL (9.6-12.0); Monocytes % 3.4 % (1.7-12.7); Neutrophils % 93.6 % (38.7-73.9); Platelet Count 185 T/CUMM (130-400); Red Blood Count 2.64 MC/CUMM (3.8-5.5); Red Cell Distribution Width 13.8 % (9.3-17.3); White Blood Count 12.3 T/CUMM (4-12)
[2019-05-01 08:07] LABS: Calcium 8.8 MG/DL (8.5-10.1); Osmolality,Calculated 296.4 MOS/KG (273-304)
[2019-05-01 08:17] LABS: Band Neutrophils 1 % (0-10); Lymphocytes 1 % (20-55); Macrocytosis Slight; Ovalocytes Few; Platelet Estimate Adequate; Polychromasia Slight; Segmented Neutrophils 97 % (50-85); Total Cells Counted 100
[2019-05-01] MEDS: INSULIN REGULAR 100 UNIT/ML SUBCUT SCH ×4 (08:17→20:22)
[2019-05-01] MEDS: POTASSIUM CHLORIDE 10 MEQ TABLET PO SCH ×2 (08:18→20:23)
[2019-05-01] MEDS: PANTOPRAZOLE 40 MG TABLET PO SCH (08:18)
[2019-05-01] MEDS: FUROSEMIDE 40 MG/4 ML VIAL IV SCH ×2 (08:18→14:59)
[2019-05-01] MEDS: APIXABAN 5 MG TABLET PO SCH ×2 (08:18→20:23)
[2019-05-01] MEDS: oxyCODONE ER 20 MG TABLET PO SCH ×2 (08:18→20:23)
[2019-05-01] MEDS: METOPROLOL SUCCINATE XL 50 MG TABLET PO SCH (08:18)
[2019-05-01] MEDS: MORPHINE 4 MG/1 ML VIAL IV PRN ×3 (08:20→23:16)
[2019-05-01] MEDS: BUDESONIDE/FORMOTEROL 160-4.5 INHALER 6 GM INH SCH ×2 (09:28→20:24)
[2019-05-01] MEDS ORDERED: metOLazone 5 MG TABLET PO ONE (10:19)
[2019-05-01] MEDS: NICOTINE 21 MG/24 HR PATCH TRANSDERM PRN (17:41)
[2019-05-01] MEDS: ACETAMINOPHEN 325 MG TABLET PO PRN (17:49)
[2019-05-01] MEDS: LEVOFLOXACIN INJ 500 MG in PREMIX 1 EACH IV SCH (20:23)
[2019-05-02] MEDS: methylPREDNISolone SOD SUC 40 MG/1 ML VIAL IV SCH (04:17)
[2019-05-02 04:48] LABS: Basophils % 0.1 % (0.0-0.8); Hematocrit 26.8 VOL% (42.0-52.0); Hemoglobin 8.4 GM/DL (14.0-18.0); Immature Granulocytes % 3.3 %; Lymphocytes # 0.2 10*3/uL (1.4-4.0); Lymphocytes % 2.6 % (21.2-54.2); Mean Corpuscular HGB Conc 31.3 GM/DL (32-36); Mean Corpuscular Volume 103.9 FL (87-102); Mean Platelet Volume 9.2 FL (9.6-12.0); Monocytes % 4.1 % (1.7-12.7); Neutrophils % 89.9 % (38.7-73.9); Platelet Count 176 T/CUMM (130-400); Red Blood Count 2.58 MC/CUMM (3.8-5.5); Red Cell Distribution Width 13.8 % (9.3-17.3); White Blood Count 9.2 T/CUMM (4-12)
[2019-05-02 05:20] LABS: Band Neutrophils 2 % (0-10); Hypochromasia 1+; Lymphocytes 4 % (20-55); Platelet Estimate Normal; Segmented Neutrophils 88 % (50-85); Total Cells Counted 100
[2019-05-02 05:51] LABS: Calcium 8.6 MG/DL (8.5-10.1); Osmolality,Calculated 298.8 MOS/KG (273-304)
[2019-05-02] MEDS: DORNASE ALFA 2.5 MG/2.5 ML VIAL RESP TX SCH (07:30)
[2019-05-02] MEDS ORDERED: FUROSEMIDE 20 MG/2 ML VIAL ONE (08:24)
[2019-05-02] MEDS: METOPROLOL SUCCINATE XL 50 MG TABLET PO SCH (08:42)
[2019-05-02] MEDS: oxyCODONE ER 20 MG TABLET PO SCH (08:42)
[2019-05-02] MEDS: FUROSEMIDE 40 MG/4 ML VIAL IV SCH (08:43)
[2019-05-02] MEDS: POTASSIUM CHLORIDE 10 MEQ TABLET PO SCH (08:43)
[2019-05-02] MEDS: PANTOPRAZOLE 40 MG TABLET PO SCH (08:43)
[2019-05-02] MEDS: APIXABAN 5 MG TABLET PO SCH (08:43)
[2019-05-02] MEDS: INSULIN REGULAR 100 UNIT/ML SUBCUT SCH (08:53)
[2019-05-02] MEDS: BUDESONIDE/FORMOTEROL 160-4.5 INHALER 6 GM INH SCH (08:59)
[2019-05-02 09:35] VITALS: BP 161/79
== END 2019-05-02 11:25 | disposition home health service (06) | DRG 291 ==
LOC: N.ED 13:49 → SUATTDRO 18:58 → N.EDINP 18:58 → N.4E 19:22
PROVIDERS: ADMIT Family Medicine; ATTEND Internal Medicine

== ENCOUNTER 2019-06-07 19:25 | Inpatient (IN) ==
[2019-06-07] MEDS ORDERED: NALOXONE 0.4 MG/ML VIAL IV STA (20:11)
[2019-06-07 20:27] LABS: Basophils % 0.9 % (0.0-0.8); Eosinophils % 0.9 % (0.00-10.9); Hematocrit 26.3 VOL% (42.0-52.0); Hemoglobin 8.2 GM/DL (14.0-18.0); Immature Granulocytes % 2.3 %; Lymphocytes # 0.5 10*3/uL (1.4-4.0); Lymphocytes % 10.4 % (21.2-54.2); Mean Corpuscular HGB Conc 31.2 GM/DL (32-36); Mean Platelet Volume 8.9 FL (9.6-12.0); Monocytes % 10.4 % (1.7-12.7); Neutrophils % 75.1 % (38.7-73.9); Platelet Count 148 T/CUMM (130-400); Red Blood Count 2.53 MC/CUMM (3.8-5.5); Red Cell Distribution Width 13.4 % (9.3-17.3); White Blood Count 4.4 T/CUMM (4-12)
[2019-06-07 20:34] LABS: Alanine Aminotransferase 13 U/L (16-61); Albumin 2.7 G/DL (3.4-5.0); Alkaline Phosphatase 63 U/L (45-117); Aspartate Amino Transferase 16 U/L (0-37); Bilirubin,Total < 0.39 MG/DL (0.2-1.0); Blood Urea Nitrogen 46 MG/DL (7-18); Calcium 8.3 MG/DL (8.5-10.1); Glucose 77 MG/DL (74-106); Osmolality,Calculated 289.4 MOS/KG (273-304); Total Protein 6.3 G/DL (6.4-8.3)
[2019-06-07 20:36] LABS: Allen Test Positive
[2019-06-07] MEDS ORDERED: SODIUM CHLORIDE 0.9% 1,000 ML IV STA (20:37)
[2019-06-07 20:38] LABS: ABG Base Excess 4.8 MMOL/L (-2.5-2.5); ABG HCO3 28.8 MMOL/L (20-26); ABG Oxygen Saturation 98.8 % (95-100); ABG PH 7.233 (7.35-7.45); ABG TCO2 32.5 MMOL/L (23-27)
[2019-06-07] MEDS ORDERED: ETOMIDATE 20 MG/10 ML VIAL IV ONE (20:40)
[2019-06-07] MEDS ORDERED: SUCCINYLCHOLINE 200 MG/10 ML VIAL ONE (20:42)
[2019-06-07 20:43] LABS: ABG PCO2 84.1 MM HG (35-48)
[2019-06-07] MEDS ORDERED: ETOMIDATE 20 MG/10 ML VIAL IV STA (20:58)
[2019-06-07] MEDS ORDERED: ROCURONIUM 100 MG/10 ML VIAL IV STA (20:58)
[2019-06-07] MEDS: PROPOFOL 1,000 MG/100 ML BOTTLE IV SCH (21:04)
[2019-06-07] MEDS ORDERED: FUROSEMIDE 100 MG/10 ML VIAL IV STA (21:18)
[2019-06-07] MEDS ORDERED: PIPERACILLIN/TAZOBACTAM 3,375 MG in SODIUM CHLORIDE 0.9% 100 ML IV STA ×2 (21:33→21:36)
[2019-06-07] MEDS ORDERED: ROCURONIUM 100 MG/10 ML VIAL IV ONE (21:35)
[2019-06-07] MEDS ORDERED: SODIUM CHLORIDE 0.9% 1,000 ML IV ONE (22:25)
[2019-06-07 22:26] LABS: ABG Base Excess 2.7 MMOL/L (-2.5-2.5); ABG HCO3 26.9 MMOL/L (20-26); ABG Oxygen Saturation 99.6 % (95-100); ABG PCO2 61.3 MM HG (35-48); ABG PH 7.306 (7.35-7.45); ABG TCO2 27.8 MMOL/L (23-27); Allen Test Positive; Pt O2 Delivery Device Ventilator
[2019-06-07] MEDS ORDERED: MIDAZOLAM 2 MG/2 ML VIAL IV ONE (22:53)
[2019-06-07] MEDS ORDERED: MIDAZOLAM 10 MG/2 ML VIAL ONE (22:56)
[2019-06-07] MEDS ORDERED: ONDANSETRON 4 MG/2 ML VIAL IV PRN (23:33)
[2019-06-07] MEDS ORDERED: MIDAZOLAM 100 MG in SODIUM CHLORIDE 0.9% 80 ML IV PRN (23:33)
[2019-06-08 00:38] LABS: Apearance,Urine CLEAR (Clear); Bacteria,Urine Occasional /HPF (Few); Bilirubin,Urine Negative (Negative); Blood, Urine Negative (Negative); Glucose,Urine (UA) Negative (Negative); Hyaline Casts,Urine 3 /LPF (0-3); Ketones,Urine Negative (Negative); Nitrite,Urine Negative (Negative); Protein,Urine Negative; RBC,Urine <1 /HPF (0-4); Squamous Epithelial Cell,Urine Occasional /HPF (0-10); Urine Color Straw (Yellow); Urine Specific Gravity 1.009 (1.001-1.035); Urine Urobilinogen < 2.0 EU/DL (0.2-1.0); WBC,Urine 1 /HPF (0-6)
[2019-06-08] MEDS: MIDAZOLAM 100 MG in SODIUM CHLORIDE 0.9% 80 ML IV PRN (00:46)
[2019-06-08] MEDS: ALBUTEROL/IPRATROPIUM 3 ML NEB RESP TX SCH ×4 (00:51→19:29)
[2019-06-08] MEDS: FAMOTIDINE 20 MG/2 ML VIAL IV SCH ×2 (01:06→22:02)
[2019-06-08] MEDS ORDERED: NOREPINEPHRINE 8 MG in SODIUM CHLORIDE 0.9% 242 ML IV PRN (03:19)
[2019-06-08] MEDS ORDERED: SODIUM CHLORIDE 0.9% 500 ML IV PRN (03:23)
[2019-06-08 03:29] LABS: ABG Base Excess 5.1 MMOL/L (-2.5-2.5); ABG HCO3 29.1 MMOL/L (20-26); ABG PCO2 44.6 MM HG (35-48); ABG PH 7.435 (7.35-7.45); ABG TCO2 27.6 MMOL/L (23-27)
[2019-06-08 05:46] LABS: Basophils % 0.6 % (0.0-0.8); Eosinophils % 0.3 % (0.00-10.9); Hematocrit 27.3 VOL% (42.0-52.0); Hemoglobin 8.5 GM/DL (14.0-18.0); Immature Granulocytes % 1.4 %; Immature Granulocytes Absolute 0.09 #; Lymphocytes # 0.6 10*3/uL (1.4-4.0); Mean Corpuscular HGB Conc 31.1 GM/DL (32-36); Mean Corpuscular Volume 103.8 FL (87-102); Mean Platelet Volume 9.1 FL (9.6-12.0); Monocytes % 8.7 % (1.7-12.7); Platelet Count 139 T/CUMM (130-400); Red Blood Count 2.63 MC/CUMM (3.8-5.5); Red Cell Distribution Width 13.2 % (9.3-17.3); White Blood Count 6.7 T/CUMM (4-12)
[2019-06-08 06:13] LABS: Albumin 2.5 G/DL (3.4-5.0); Bilirubin,Total 0.5 MG/DL (0.2-1.0); Calcium 8.5 MG/DL (8.5-10.1); Osmolality,Calculated 290.1 MOS/KG (273-304); Total Protein 5.7 G/DL (6.4-8.3)
[2019-06-08] MEDS ORDERED: GLUCAGON 1 MG VIAL ONE (06:19)
[2019-06-08] MEDS ORDERED: GLUCAGON 1 MG VIAL IM ONE (06:24)
[2019-06-08] MEDS: DEXTROSE 10% 1,000 ML IV SCH ×2 (07:14→20:12)
[2019-06-08] MEDS: PIPERACILLIN/TAZOBACTAM 3,375 MG in SODIUM CHLORIDE 0.9% 100 ML IV SCH ×2 (08:44→16:16)
[2019-06-08] MEDS ORDERED: FUROSEMIDE 40 MG/4 ML VIAL IV SCH (09:00)
[2019-06-08] MEDS: HYDROCORTISONE 100 MG VIAL IV SCH ×3 (09:55→22:04)
[2019-06-08] MEDS: FLUDROCORTISONE 0.1 MG TABLET PER TUBE SCH ×2 (09:56→22:02)
[2019-06-08] MEDS: PROPOFOL 1,000 MG/100 ML BOTTLE IV SCH (22:07)
[2019-06-09] MEDS: PIPERACILLIN/TAZOBACTAM 3,375 MG in SODIUM CHLORIDE 0.9% 100 ML IV SCH ×3 (00:35→16:37)
[2019-06-09] MEDS: ALBUTEROL/IPRATROPIUM 3 ML NEB RESP TX SCH ×5 (00:47→20:43)
[2019-06-09 03:35] LABS: ABG Base Excess 4.3 MMOL/L (-2.5-2.5); ABG PCO2 37.9 MM HG (35-48); ABG PH 7.486 (7.35-7.45); ABG PO2 88.7 MM HG (80-95); ABG TCO2 29.1 MMOL/L (23-27); Allen Test Positive; Pt O2 Delivery Device Ventilator
[2019-06-09] MEDS: HYDROCORTISONE 100 MG VIAL IV SCH ×4 (03:40→23:24)
[2019-06-09 05:47] LABS: Basophils % 0.1 % (0.0-0.8); Hematocrit 25.7 VOL% (42.0-52.0); Hemoglobin 8.3 GM/DL (14.0-18.0); Immature Granulocytes Absolute 0.07 #; Lymphocytes # 0.3 10*3/uL (1.4-4.0); Lymphocytes % 3.5 % (21.2-54.2); Mean Corpuscular HGB Conc 32.3 GM/DL (32-36); Mean Corpuscular Volume 101.2 FL (87-102); Mean Platelet Volume 9.3 FL (9.6-12.0); Monocytes % 4.6 % (1.7-12.7); Neutrophils % 90.8 % (38.7-73.9); Platelet Count 153 T/CUMM (130-400); Red Blood Count 2.54 MC/CUMM (3.8-5.5); Red Cell Distribution Width 13.5 % (9.3-17.3); White Blood Count 7.2 T/CUMM (4-12)
[2019-06-09 06:09] LABS: Hypochromasia 1+; Lymphocytes 6 % (20-55); Ovalocytes Slight; Platelet Estimate Adequate; Segmented Neutrophils 89 % (50-85); Total Cells Counted 100
[2019-06-09 06:25] LABS: Calcium 8.7 MG/DL (8.5-10.1); Osmolality,Calculated 300.1 MOS/KG (273-304)
[2019-06-09] MEDS: MIDAZOLAM 100 MG in SODIUM CHLORIDE 0.9% 80 ML IV PRN (07:18)
[2019-06-09] MEDS: FLUDROCORTISONE 0.1 MG TABLET PER TUBE SCH (09:28)
[2019-06-09] MEDS ORDERED: fentaNYL 12 MCG/HR PATCH TRANSDERM SCH (11:30)
[2019-06-09] MEDS ORDERED: DEXTROSE 50% 25 GM/50 ML VIAL IV PRN (12:14)
[2019-06-09] MEDS ORDERED: GLUCAGON 1 MG VIAL IM PRN (12:14)
[2019-06-09] MEDS: NICOTINE 14 MG/24 HR PATCH TRANSDERM SCH (13:29)
[2019-06-09] MEDS: INSULIN REGULAR 100 UNIT/ML SUBCUT SCH ×2 (16:37→20:17)
[2019-06-09] MEDS ORDERED: oxyCODONE IR 5 MG TABLET PO PRN (16:47)
[2019-06-09] MEDS: MORPHINE 4 MG/1 ML VIAL IV PRN ×2 (17:26→20:10)
[2019-06-09] MEDS: FAMOTIDINE 20 MG/2 ML VIAL IV SCH (20:08)
[2019-06-09] MEDS: ALBUTEROL 2.5 MG/3 ML NEB RESP TX PRN (22:06)
[2019-06-09] MEDS ORDERED: METOPROLOL TARTRATE 5 MG/5 ML VIAL IV ONE (22:54)
[2019-06-10] MEDS: MORPHINE 4 MG/1 ML VIAL IV PRN ×2 (00:09→23:35)
[2019-06-10] MEDS: PIPERACILLIN/TAZOBACTAM 3,375 MG in SODIUM CHLORIDE 0.9% 100 ML IV SCH ×2 (00:12→07:53)
[2019-06-10] MEDS: dilTIAZem Drip 125 MG/125 ML PREMIX IV PRN ×2 (01:30→08:49)
[2019-06-10] MEDS: ALBUTEROL/IPRATROPIUM 3 ML NEB RESP TX SCH ×5 (01:54→23:53)
[2019-06-10 05:29] LABS: Calcium 8.8 MG/DL (8.5-10.1); Osmolality,Calculated 294.7 MOS/KG (273-304)
[2019-06-10] MEDS: HYDROCORTISONE 100 MG VIAL IV SCH ×2 (05:29→09:56)
[2019-06-10 06:35] LABS: Basophils % 0.2 % (0.0-0.8); Hematocrit 29.2 VOL% (42.0-52.0); Hemoglobin 9.5 GM/DL (14.0-18.0); Immature Granulocytes % 2.3 %; Immature Granulocytes Absolute 0.29 #; Lymphocytes # 0.4 10*3/uL (1.4-4.0); Lymphocytes % 3.5 % (21.2-54.2); Mean Corpuscular HGB Conc 32.5 GM/DL (32-36); Mean Corpuscular Volume 100.3 FL (87-102); Mean Platelet Volume 9.4 FL (9.6-12.0); Platelet Count 181 T/CUMM (130-400); Red Blood Count 2.91 MC/CUMM (3.8-5.5); Red Cell Distribution Width 13.3 % (9.3-17.3); White Blood Count 12.4 T/CUMM (4-12)
[2019-06-10 07:03] LABS: Band Neutrophils 1 % (0-10); Hypochromasia 1+; Lymphocytes 3 % (20-55); Platelet Estimate Adequate; Segmented Neutrophils 90 % (50-85); Total Cells Counted 100
[2019-06-10] MEDS: INSULIN REGULAR 100 UNIT/ML SUBCUT SCH ×4 (07:52→20:19)
[2019-06-10] MEDS: METOPROLOL SUCCINATE XL 50 MG TABLET PO SCH (08:47)
[2019-06-10] MEDS: NICOTINE 14 MG/24 HR PATCH TRANSDERM SCH (08:47)
[2019-06-10] MEDS ORDERED: DIGOXIN 0.5 MG/2 ML AMP IV ONE ×2 (09:08→12:00)
[2019-06-10] MEDS ORDERED: SENNOSIDES 50 MG PO PRN (09:09)
[2019-06-10] MEDS ORDERED: METOPROLOL SUCCINATE XL 50 MG TABLET PO SCH (09:30)
[2019-06-10] MEDS ORDERED: APIXABAN 2.5 MG TABLET PO SCH (09:30)
[2019-06-10] MEDS ORDERED: APIXABAN 5 MG TABLET PO SCH ×2 (09:30)
[2019-06-10] MEDS: PANTOPRAZOLE 40 MG TABLET PO SCH (09:56)
[2019-06-10] MEDS ORDERED: fentaNYL 50 MCG/HR PATCH TRANSDERM SCH (11:00)
[2019-06-10] MEDS: oxyCODONE IR 5 MG TABLET PO PRN (17:53)
[2019-06-10] MEDS: APIXABAN 2.5 MG TABLET PO SCH (20:23)
[2019-06-10] MEDS: ALBUTEROL 2.5 MG/3 ML NEB RESP TX PRN (23:42)
[2019-06-11] MEDS: MORPHINE 4 MG/1 ML VIAL IV PRN (06:04)
[2019-06-11 06:42] LABS: Basophils % 0.4 % (0.0-0.8); Eosinophils # 0.1 10*3/uL (0.0-0.87); Eosinophils % 0.7 % (0.00-10.9); Hematocrit 27.9 VOL% (42.0-52.0); Hemoglobin 9.1 GM/DL (14.0-18.0); Immature Granulocytes % 3.6 %; Immature Granulocytes Absolute 0.37 #; Lymphocytes # 0.6 10*3/uL (1.4-4.0); Lymphocytes % 5.8 % (21.2-54.2); Mean Corpuscular HGB Conc 32.6 GM/DL (32-36); Mean Corpuscular Volume 100.7 FL (87-102); Monocytes % 8.6 % (1.7-12.7); Neutrophils % 80.9 % (38.7-73.9); Platelet Count 183 T/CUMM (130-400); Red Blood Count 2.77 MC/CUMM (3.8-5.5); Red Cell Distribution Width 13.3 % (9.3-17.3); White Blood Count 10.2 T/CUMM (4-12)
[2019-06-11 07:00] LABS: Calcium 8.8 MG/DL (8.5-10.1); Osmolality,Calculated 286.8 MOS/KG (273-304)
[2019-06-11] MEDS: ALBUTEROL/IPRATROPIUM 3 ML NEB RESP TX SCH ×2 (07:34→12:54)
[2019-06-11] MEDS: INSULIN REGULAR 100 UNIT/ML SUBCUT SCH ×2 (08:09→11:55)
[2019-06-11] MEDS: NICOTINE 14 MG/24 HR PATCH TRANSDERM SCH (08:32)
[2019-06-11] MEDS: PANTOPRAZOLE 40 MG TABLET PO SCH (08:33)
[2019-06-11] MEDS: oxyCODONE IR 5 MG TABLET PO PRN (08:33)
[2019-06-11] MEDS: METOPROLOL SUCCINATE XL 50 MG TABLET PO SCH (08:34)
[2019-06-11] MEDS: APIXABAN 2.5 MG TABLET PO SCH (08:34)
[2019-06-11 12:15] VITALS: BP 134/67
== END 2019-06-11 01:36 | disposition hospice, home (50) | DRG 208 ==
LOC: EDBD → EDUNIT# → N.ED 19:25 → SUATTDRO 23:33 → N.EDINP 23:33 → N.CC 06-08 00:08 → N.4E 06-10 14:56
PROVIDERS: ADMIT Internal Medicine; ATTEND Internal Medicine Cardiovascular Disease